=== PATIENT | male | born 2005 | race Caucasian/White ===

== ENCOUNTER 2025-02-28 18:14 | Emergency (ER) | payer SELFPAY ==
--- NOTE | 2025-02-28 18:19 | XRR_ITS ---
PROCEDURE INFORMATION: Exam: XR Chest Exam date and time: 02/28/2025 6:23 PM Age: 19 years old Clinical indication: Pain; Chest pressure; Additional info: Chest pain TECHNIQUE: Imaging protocol: Radiologic exam of the chest. Views: 1 view. COMPARISON: No relevant prior studies available. FINDINGS: Lungs: Unremarkable. No consolidation. Pleural spaces: Unremarkable. No pleural effusion. No pneumothorax. Heart/Mediastinum: Unremarkable. No cardiomegaly. Bones/joints: Mild leftward curvature of the upper thoracic spine. No fracture. XR/XR chest 1V portable 14357 IMPRESSION: No acute findings.
[2025-02-28 18:20] VITALS: BP 126/74; PULSE 93; RESP 18; TEMP 36.8; O2SAT 99; BMI 19.3
[2025-02-28 18:47] LABS: Basophils # 0.1 10^3/uL (0.0-0.1); Basophils % 0.4 %; Eosinophils # 0.1 10^3/uL (0.0-0.8); Eosinophils % 0.4 %; Hematocrit 42.6 % (37-53); Lymphocytes # 2.5 10^3/uL (1.5-6.5); Lymphocytes % 19.1 %; Mean Corpuscular HGB Conc 33.1 g/dL (30-55); Mean Corpuscular Hemoglobin 28.9 pg (27-33); Mean Corpuscular Volume 87.3 fl (82-101); Mean Platelet Volume 9.6 fL (7.4-10.4); Monocytes # 0.9 10^3/uL (0.2-0.9); Monocytes % 7.1 %; Neutrophils # 9.41 10^3/uL (1.8-8.0); Neutrophils % 72.5 %; Nucleated Red Blood Cells % 0 %; Platelet Count 326 10^3/cmm (157-399); Red Blood Count 4.88 10^6/uL (3.85-5.65); Red Cell Distribution Width 12.6 % (12.1-15.1); White Blood Count 12.98 10^3/uL (4.5-13.0)
--- NOTE | 2025-02-28 18:47 | ECG_ITS ---
[facility] On Me (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 Measurements Intervals [place] Rate: 72 P: 60 NE: 116 QRS: 91 QRSD: 101 T: 52 QT: 353 QTc: 387 Interpretive Statements SINUS RHYTHM WITH MARKED SINUS ARRHYTHMIA WITH SHORT NE INTERVAL BORDERLINE RIGHT AXIS DEVIATION [QRS AXIS > 90] No previous ECG available for comparison Electronically Signed On 03-01-2025 21:48:40 CDT by Elijah Maharaj M.D. [email or web address]
--- NOTE | 2025-02-28 18:47 | ED_ITS ---
HPI - Syncope 2 General: Chief Complaint: Syncope Stated Complaint: Weak,Syncope Time Seen by Provider: 02/28/25 18:18 History of Present Illness: Patient is a generally well-appearing 19-year-old male seen for syncopal episode which occurred at work today. He states that he felt lightheaded for several seconds and then his vision went out and then the next thing he knew he was on the ground with coworkers around him. He denies striking his head, headache, visual disturbance, chest pain, shortness of breath, loss of bowel or bladder control, biting his tongue. He has no history of seizures. He states that when he was 8 years old he had 1 bout of syncope. Since that time he has had no syncope. He states that for the last several weeks he has been coughing but generally feels okay. Related Data Allergies Allergy/AdvReac Type Severity Reaction Status Date / Time No Known Allergies Allergy Verified 02/28/25 18:25 Physical Exam 2 Const: COMMON NORMALS: no acute distress, patient oriented x3 and alert HENMT: COMMON NORMALS: normocephalic and atraumatic HEAD & SCALP: n ormocephalic and atraumatic Eye: COMMON NORMALS: Equal, round and reactive pupils present, EOMs intact bilaterally and no scleral icterus PUPIL: Yes Equal, round and reactive pupils present Resp: COMMON NORMALS: normal respiratory effort and No retractions Cardio: COMMON NORMALS: regular rate, regular rhythm and No murmurs present (Cardio) RATE: regular rate RHYTHM: regular rhythm GI: COMMON NORMALS: Normal to inspection, nondistended, normoactive bowel sounds present, Soft to palpation and non-tender PALPATION: Yes Soft to palpation Neuro: COMMON NORMALS: patient oriented x3 SENSORIUM/ORIENTATION: Yes alert Skin: COMMON NORMALS: no rashes or lesions noted GENERAL SKIN EXAM: no rashes or lesions noted Course 2 Vital Signs: Vital signs: Vital Signs Temperature 98.2 F 02/28/25 18:20 Pulse Rate 86 02/28/25 20:14 Respiratory Rate 16 02/28/25 20:14 Blood Pressure 124/72 02/28/25 20:14 Pulse Oximetry 99 02/28/25 20:14 Oxygen Delivery Me thod Room Air 02/28/25 19:42 MDM - Syncope Medical Decision Making In summary, patient is a well-appearing 19-year-old male seen for syncopal episode at work today. Orthostatic vital signs are negative, labs are reassuring, EKG shows short IA interval but no other worrisome findings, and chest x-ray shows nothing acute. EKG was shared with on-call cardiology who does not feel he requires immediate or further workup. I suspect he may have had a vasovagal episode which may have been mediated by his recent upper respiratory symptoms. Regardless, he will be discharged in stable improved condition with follow-up primary care as needed. Cardiology also recommends that he not emergently have primary care refer him to electrophysiology for further testing and consider wearing a cardiac event monitor should symptoms recur. Lab Data 02/28/25 18:37 02/28/25 18:37 Radiology Impressions Chest X-Ray 02/28/25 18:19 IMPRESSION: No acute findings. Laboratory Results WBC 12.98 10^3/uL (4.5-13.0) 02/28/25 18:37 RBC 4.88 10^6/uL (3.85-5.65) 02/28/25 18:37 Hgb 14.10 g/dL (13.2-15.6) 02/28/25 18:37 Hct 42.6 % (37-53) 02/28/25 18:37 MCV 87.3 fl (82-101) 02/28/25 18:37 MCH 28.9 pg (27-33) 02/28/25 18:37 MCHC 33.1 g/dL (30-55) 02/28/25 18:37 RDW 12.6 % (12.1-15.1) 02/28/25 18:37 Plt Count 326 10^3/cmm (157-399) 02/28/25 18:37 MPV 9.6 fL (7.4-10.4) 02/28/25 18:37 Neut % (Auto) 72.5 % 02/28/25 18:37 Lymph % (Auto) 19.1 % 02/28/25 18:37 [place] % (Auto) 7.1 % 02/28/25 18:37 Eos % (Auto) 0.4 % 02/28/25 18:37 Baso % (Auto) 0.4 % 02/28/25 18:37 Neut # (Auto) 9.41 10^3/uL (1.8-8.0) H 02/28/25 18:37 Lymph # (Auto) 2.5 10^3/uL (1.5-6.5) 02/28/25 18:37 [place] # (Auto) 0.9 10^3/uL (0.2-0.9) 02/28/25 18:37 Eos # (Auto) 0.1 10^3/uL (0.0-0.8) 02/28/25 18:37 Baso # (Auto) 0.1 10^3/uL (0.0-0.1) 02/28/25 18:37 Nucleated RBC % (auto) 0 % 02/28/25 18:37 Nucleated RBCs # 0.0 /100WBC 02/28/25 18:37 Sodium 140 mmol/L (136-145) 02/28/25 18:37 Potassium 3.7 mmol/L (3.5-5.1) 02/28/25 18:37 Chloride 104 mmol/L (98-107) 02/28/25 18:37 Carbon Dioxide 21 mmol/L (22-29) L 02/28/25 18:37 Anion Gap 18.7 (5-19) 02/28/25 18:37 BUN 15 mg/dL (6-20) 02/28/25 18:37 Creatinine 0.7 mg/dL (0.7-1.2) 02/28/25 18:37 GFR Calculation 145.3 mL/min (90-130) H 02/28/25 18:37 Glucose 88 mg/dL (65-115) 02/28/25 18:37 Calculated Osmolality 290 mOsm/kg (285-295) 02/28/25 18:37 Calcium 8.9 mg/dL (8.5-10.5) 02/28/25 18:37 Total Bilirubin 0.4 mg/dL (0.15-1.2) 02/28/25 18:37 AST 14 U/L (0-40) 02/28/25 18:37 ALT 10 U/L (0-41) 02/28/25 18:37 Alkaline Phosphatase 103 U/L (40-130) 02/28/25 18:37 Total Protein 8.0 g/dL (6.6-8.7) 02/28/25 18:37 Albumin 3.8 g/dL (3.5-5.2) 02/28/25 18:37 Globulin 4.2 g/dL (1.3-4.6) 02/28/25 18:37 All radiology interpretation(s) finalized by discharge EKG Data EKG 1: Interpretation: Time-184?sinus rhythm with short IA interval of 72 ms, no delta wave, mild J- point elevation in multiple leads. Right axis deviation. QTc = 377. No ST segment elevation or depression, no T wave inversions. Discharge Plan Discharge Patient Disposition: Home Clinical Impression: Syncope, Shortened IA interval Condition: Stable Discharge Orders: Discharge ED (Routine); Ordered 02/28/25 Ordered By: Isaias Yanez Patient Instructions: Syncope (ED) Activity Restrictions/Additional Instructions: Your blood tests and chest x-ray are reassuring. Your EKG shows 1 small abnormality where one of the intervals is shortened. In very rare instances, this can mean that there is an electrical conduction problem in the heart. Your EKG was reviewed by the local contract accountant and he feels it is safe you to go home but you need to obtain a primary care doctor and from them get a potline monitor and you can wear and consultation to campus director who can do the advanced studies on your heart. Case management has been consulted to help you get a primary care doctor and achieve all of these requests. If you have further concerns please do not hesitate to return the emergency department. Again, it is most likely this is a 1 off situation which does not imply your heart is the cause, but it is best to be safe and checked thoroughly. Print Language: Greek Coding Level of Care Code ED Food Concession Manager for Emil Francis
[2025-02-28 18:49] VITALS: BP 112/82; PULSE 92; RESP 15; O2SAT 92
[2025-02-28 19:02] LABS: Alanine Aminotransferase 10 U/L (0-41); Albumin Level 3.8 g/dL (3.5-5.2); Alkaline Phosphatase 103 U/L (40-130); Anion Gap 18.7 (5-19); Aspartate Amino Transferase 14 U/L (0-40); Blood Urea Nitrogen 15 mg/dL (6-20); Calcium 8.9 mg/dL (8.5-10.5); Carbon Dioxide 21 mmol/L (22-29); Chloride 104 mmol/L (98-107); Creatinine Clr Calc Pharmacy 153.8486; Globulin 4.2 g/dL (1.3-4.6); Glomerular Filtration Rate 145.3 mL/min (90-130); Glucose 88 mg/dL (65-115); Osmolality Calculated 290 mOsm/kg (285-295); Potassium 3.7 mmol/L (3.5-5.1); Sodium 140 mmol/L (136-145); Total Bilirubin 0.4 mg/dL (0.15-1.2)
[2025-02-28 19:08] LABS: Slide Review Slide Review Perform
[2025-02-28 19:38] VITALS: BP 101/72; BP 115/79; BP 118/72; PULSE 110; PULSE 87; PULSE 95
[2025-02-28 19:42] VITALS: BP 115/79; PULSE 90; RESP 16; O2SAT 95
[2025-02-28 20:14] VITALS: BP 124/72; PULSE 86; RESP 16; O2SAT 99
--- NOTE | 2025-03-02 07:40 | DCPLANNER ---
messaged heart care for er f/u
== END 2025-02-28 20:15 | disposition home or self-care (01) ==
PROVIDERS: Emergency Provider Student in an Organized Health Care Education/Training Program
DX: R55 Syncope and collapse (principal); I45.6 Pre-excitation syndrome
CPT/HCPCS: 36415; 71045; 80053; 85025; 93005; 99285